=== PATIENT | male | born 1955 | race Caucasian/White ===

== ENCOUNTER 2020-08-05 12:58 | Outpatient (CLI) | payer MEDICARE, OTHER, SELFPAY ==
--- NOTE | 2020-08-05 13:30 | USCV_ITS ---
Tavo Levin Age: 65 Gender: M : 1955 Exam Date: 08/05/2020 13:18 Ordering Phys: Ingrid Maravilla MD ([email or web address]) Technologist: Betty Merida Exam Location: [facility] [place] Indication: SWELLING POSSIBLE DVT PROCEDURES: Venous duplex imaging was performed in only the left lower extremity. The following venous structures were evaluated: common femoral vein, profunda vein, proximal portion of the greater saphenous vein, superficial femoral vein, and the popliteal vein. In addition, the posterior tibial and peroneal trunk were evaluated. FINDINGS: Normal 2-D Doppler and augmentation and compressibility throughout the lower extremity venous structures. Additional imaging through the proximal calf veins also reveals no thrombus. Limited evaluation of the greater saphenous vein is patent with no thrombus.. CONCLUSIONS No evidence of DVT in the above-mentioned identifiable veins. Dr Temitope De Leon MD FACC (Electronically Signed) Final Date: 06 August 2020 09:40 S
== END 2020-08-05 12:59 | disposition home or self-care (01) ==
PROVIDERS: PCP Electrodiagnostic Medicine; Visit Provider Internal Medicine Cardiovascular Disease
DX: I82.409 Acute embolism and thrombosis of unspecified deep veins of unspecified lower extremity (principal); M79.89 Other specified soft tissue disorders
CPT/HCPCS: 93971

== ENCOUNTER → 2022-01-16 13:43 | Outpatient (BNVA) | payer MEDICARE, OTHER, SELFPAY | PROVIDERS: PCP Electrodiagnostic Medicine; Visit Provider Internal Medicine Cardiovascular Disease | DX: R06.02 Shortness of breath (principal); I10 Essential (primary) hypertension; I42.8 Other cardiomyopathies; I83.893 Varicose veins of bilateral lower extremities with other complications; Z87.891 Personal history of nicotine dependence | CPT/HCPCS: 99214 ==

== ENCOUNTER → 2022-07-24 14:00 | Outpatient (BNVA) | payer MEDICARE, OTHER, SELFPAY | PROVIDERS: PCP Electrodiagnostic Medicine; Visit Provider Internal Medicine Cardiovascular Disease | DX: I42.8 Other cardiomyopathies (principal); R06.02 Shortness of breath; R07.9 Chest pain, unspecified; I10 Essential (primary) hypertension; I83.893 Varicose veins of bilateral lower extremities with other complications; Z87.891 Personal history of nicotine dependence | CPT/HCPCS: 99214 ==

== ENCOUNTER 2022-09-25 07:26 | Outpatient (CLI) | payer MEDICARE, MEDICAID, SELFPAY ==
--- NOTE | 2022-09-25 07:44 | CT_ITS ---
WS: [id number] LDCT LUNG CANCER SCREENING TECHNIQUE: Noncontrast CT of the chest with coronal and sagittal reformatted images. CLINICAL INFORMATION: HX OF TOBACCO USE COMPARISON: CT chest 2018 DLP: 72.21 mGy.cm DIvol: Mean CTDIvol: 1.60 (mGy) All CT scans at [facility] use at least one of these dose optimization techniques: automat ed exposure control; mA and/or kV adjustment per patient size (includes targeted exams where dose is matched to clinical indication); or iterative reconstruction. FINDINGS: Chronic calcified granulomas. 3 mm tiny nodule in the RIGHT middle lobe. Tiny noncalcified nodule LEF T upper lobe anteriorly. A few tiny subpleural micronodules bilaterally. Cholelithiasis. Presumed small hepatic cysts some too small to characterize. Small esophageal hiatal hernia. Adrenal glands are normal. Chronic granulomatous disease. Chronic rib fractures bilateral rib s and sternum. Plate and screw fixation RIGHT lateral rib fractures. Mild aortic calcification. Coron opal calcification. No axillary lymphadenopathy. No mediastinal or hilar lymphadenopathy. A few Schmorl's nodes in the thoracic spine. CT/CT lung screening [id number] IMPRESSION: LUNG-RADS: 2-Benign Appearance or Behavior FOLLOW UP: 12 Month: Continue annual screening with LDCT
== END 2022-09-25 07:27 | disposition home or self-care (01) ==
PROVIDERS: PCP Electrodiagnostic Medicine; Visit Provider Physician Assistant
DX: Z12.2 Encounter for screening for malignant neoplasm of respiratory organs (principal); Z87.891 Personal history of nicotine dependence
CPT/HCPCS: 71271

== ENCOUNTER 2022-10-02 09:58 | Outpatient (CLI) | payer MEDICARE, MEDICAID, SELFPAY ==
--- NOTE | 2022-10-02 10:00 | USCV_ITS ---
Tavo Levin Age: 67 Gender: M : 1955 Exam Date: 10/02/2022 10:17 Ordering Phys: Radha River MD ([email or web address]) Technologist: Exam Location: [facility] – [place] Indication: hx of cardio myop and mi BP: 130 / 83 HR: 76 Rhythm: Sinus Technical Quality: Adequate MEASUREMENTS (Male / Female) Normal Values 2D ECHO LV Diastolic Diameter PLAX 5.3 cm 4.2 - 5.9 / 3.9 - 5.3 cm LV Systolic Diameter PLAX 4.4 cm IVS Diastolic Thickness 1.0 cm 0.6 - 1.0 / 0.6 - 0.9 cm IVS Systolic Thickness 1.1 cm LVPW Diastolic Thickness 1.1 cm 0.6 - 1.0 / 0.6 - 0.9 cm LVPW Systolic Thickness 1.5 cm LVOT Diameter 2.1 cm LV Ejection Fraction 2D Teich 37.6 % LV Ejection Fraction MOD 2C 35.0 % LV Ejection Fraction 2C AL 33.8 % LA Diameter 4.5 cm Aorta at Sinotubular Diameter 2.9 cm M-MODE Aortic Annulus Diameter 3.3 cm LA Ao Ratio MM 1.2 MV E Point Septal Separation 1.0 cm DOPPLER AV Peak Velocity 127.0 cm/s LVOT Peak Velocity 71.0 cm/s AV Area Cont Eq vti 1.6 cm squared AV Area Cont Eq pk 1.9 cm squared MV Area PHT 5.0 cm squared Mitral E to A Ratio 0.8 MV E' Velocity 39.0 cm/s Mitral E to MV E' Ratio 8.1 Mitral E to LV E' Lateral Ratio 6.5 Mitral E to LV E' Septal Ratio 10.8 TR Peak Velocity 122.0 cm/s TR Peak Gradient 6.0 mmHg RV Acceleration Time 0.1 s FINDINGS Left Ventricle Normal left ventricular cavity size. Moderately decreased left ventricular systolic function. Left ventricular ejection fraction is estimated at 30 %. There is global hypokinesis more pronounced in septal and apical gonzalez. Abnormal diastolic function. Right Ventricle Normal right ventricular size and systolic function. RVSP could not be calculated due to incomplete tricuspid regurgitation velocity profile. Right Atrium Normal right atrial size. Left Atrium Mildly increased left atrial size. Mitral Valve Mild mitral annular calcification. Structurally normal mitral valve. No mitral valve stenosis. Trace mitral valve regurgitation. Aortic Valve Aortic valve not well visualized. No aortic valve stenosis. No aortic valve regurgitation. Tricuspid Valve Structurally normal tricuspid valve. Pulmonic Valve Pulmonic valve not well visualized. Pericardium No pericardial effusion. Aorta Normal-sized aortic root. IVC Inferior vena cava not visualized. CONCLUSIONS 1. This is a technically difficult study Optison was used per protocol. 2.. Normal left ventricular cavity size. Moderately decreased left ventricular systolic function. Left ventricular ejection fraction is estimated at 30 %. There is global hypokinesis more pronounced in septal and apical gonzalez. Abnormal diastolic function. 3. Normal right ventricular size and systolic function. 4. When compared to study report dated 07/24/2022, differential systolic function seems to have decreased from 45% in 30% now. Radha River MD (Electronically Signed) Final Date: 10 October 2022 17:11 S
[2022-10-02] MEDS: perflutren protein-a microsphr 0.22 mg/mL SDV 3 mL IV (10:52)
== END 2022-10-02 09:59 | disposition home or self-care (01) ==
PROVIDERS: PCP Electrodiagnostic Medicine; Visit Provider Internal Medicine Cardiovascular Disease
DX: R06.02 Shortness of breath (principal); I42.8 Other cardiomyopathies
CPT/HCPCS: C8929; Q9956

== ENCOUNTER 2022-10-02 09:58 | Outpatient (CLI) | payer MEDICARE, MEDICAID, SELFPAY ==
--- NOTE | 2022-10-02 | ECG_ITS ---
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 Interpretive Statements NAME OF STUDY: EXERCISE SESTAMIBI STRESS TEST INDICATION: Chest Pain Baseline blood pressure of 130/77 mm Hg, heart rate 68 beats per minute. EKG showed normal sinus rhythm, normal axis and non specific T wave inversion. ??? The patient exercised for 2 minutes and 49 seconds on a [standard Eriberto protocol]. Patient attained a maximum heart rate of 153 beats per minute( 100 % of the maximum predicted heart rate) with a blood pressure at the peak exercise of 106/79 mm Hg. The EKG at the peak exercise revealed sinus tachycardia with no significant ST-T wave changes. Patient did not have any chest pain or any significant arrhythmis with the exercise.??? During the recovery phase, there were no new changes. ??? Blood pressure at the end of the recovery phase was 153/82 mm Hg with a heart rate of 95 beats per minute. ??? CONCLUSION: 1. Normal EKG response to treadmill exercise. 2. No exercise-induced chest pain or cardiac arrhythmia. 3. Decreased exercise tolerance, attained a maximum of 4.6 METs. 4. Perfusion portion of the study will be reported separately. Electronically Signed On 10-07-2022 9:17:55 QUARTER SUPERVISOR by Radha River M.D. [email or web address]
--- NOTE | 2022-10-02 11:01 | NMCV_ITS ---
NM jus perf SPECT r/s* [id number] Tavo Levin Age: 67 Gender: M : 1955 Exam Date: 10/02/2022 11:01 Ordering Phys: Radha River MD ([email or web address]) Technologist: KAMALJIT Paige Exam Location: [facility] Indications: Chest Pain STRESS TEST Please see separate stress test report in [facility] for full findings IMAGE PROTOCOL Rest/Stress 1 Exercise Day Radiopharmaceutical Dose (mCi) Administration Site Administered by Rest: Tc-99m 10.8 IV Sestamibi Stress:Tc-99m 33.0 IV KAMALJIT Ramos Sestamibi Rest: 02-Oct-2022 60 Discovery 630 Stress: 02-Oct-2022 30 Discovery 630 Radiopharmaceutical was injected at 90 % maximum heart rate. Images obtained in supine and prone position. SPECT RESULTS Technical Quality: Excellent Raw Data Analysis: Adequate Image Corrections: No attenuation or motion correction applied Summed Stress Score: 23 Summed Rest Score: 22 Summed Difference Score: 2 PERFUSION FINDINGS Large sized perfusion abnormality of moderate to severe severity of basal inferior, basal to mid inferoseptal, apical septal, mid to apical anterior, basal to mid anteroseptal, apixcal lateral and apical gonzalez on rest images with subtle reversibility in septal wall. FUNCTIONAL RESULTS (calculated via Gated SPECT) Stress Image LV EF (%): 38 Stress EDV (mL):156 TID: 1.09 Stress ESV (mL):97 FUNCTIONAL FINDINGS: The left ventricle is normal in size. Transient Ischemia Dilatation of 1.1. The left ventricular ejection fraction is moderately reduced with a value of 38%. There is hypokinesis of inferior, septal and apical gonzalez. Increased end diastolic and end systolic volumes. IMPRESSIONS 1. Large sized perfusion abnormality of basal inferior, basal to mid inferoseptal, apical septal, mid to apical anterior, basal to mid anteroseptal, apixcal lateral and apical gonzalez with subtle reversibility in septal wall. 2. This is suggestive of old myocardial infarction in left anterior descending and right coronary artery territory with minimal isaias-infarct ischemia. 3. The left ventricular ejection fraction is moderately reduced with a value of 38%. 4. There is hypokinesis of inferior, septal and apical gonzalez. 5. EKG portion of the study will be reported separately. Radha River MD (Electronically Signed) Final Date: 10 October 2022 08:57 S
[2022-10-02 11:13] VITALS: BMI 28.7
[2022-10-02 12:32] VITALS: BP 153/82; PULSE 74
== END 2022-10-02 09:59 | disposition home or self-care (01) ==
LOC: CDL 09:59
PROVIDERS: PCP Electrodiagnostic Medicine; Visit Provider Internal Medicine Cardiovascular Disease
DX: R07.9 Chest pain, unspecified (principal); R06.02 Shortness of breath; I42.8 Other cardiomyopathies
CPT/HCPCS: 36415; 78452; 93017; 96374; A9500; C8929; Q9956

== ENCOUNTER → 2022-10-18 10:52 | Outpatient (BNVA) | payer MEDICARE, MEDICAID, SELFPAY | PROVIDERS: PCP Electrodiagnostic Medicine; Visit Provider Internal Medicine Cardiovascular Disease | DX: I42.8 Other cardiomyopathies (principal); I10 Essential (primary) hypertension; I83.893 Varicose veins of bilateral lower extremities with other complications; Z87.891 Personal history of nicotine dependence | CPT/HCPCS: 99214 ==

== ENCOUNTER 2022-10-26 11:34 | Outpatient (CLI) | payer MEDICARE, MEDICAID, SELFPAY ==
[2022-10-26 13:33] LABS: Anion Gap 12.4 (5-19); Blood Urea Nitrogen 12 mg/dL (8-23); Calcium 8.7 mg/dL (8.5-10.5); Carbon Dioxide 27 mmol/L (22-29); Chloride 101 mmol/L (98-107); Glomerular Filtration Rate 84.2 mL/min (90-130); Glucose 117 mg/dL (65-115); Magnesium 2.2 mg/dL (1.7-2.3); NT Pro B Type Natriuretic Pept 71 pg/mL (0-125); Osmolality Calculated 283 mOsm/kg (285-295); Potassium 4.4 mmol/L (3.5-5.1); Sodium 136 mmol/L (136-145)
== END 2022-10-26 11:35 | disposition home or self-care (01) ==
LOC: LAB 11:37
PROVIDERS: PCP Electrodiagnostic Medicine; Visit Provider Internal Medicine Cardiovascular Disease
DX: I42.8 Other cardiomyopathies (principal); I10 Essential (primary) hypertension
CPT/HCPCS: 80048; 83735; 83880

== ENCOUNTER → 2023-04-12 10:41 | Outpatient (BNVA) | payer MEDICARE, MEDICAID, SELFPAY | PROVIDERS: PCP Electrodiagnostic Medicine; Visit Provider Internal Medicine Cardiovascular Disease | DX: I42.9 Cardiomyopathy, unspecified (principal); I10 Essential (primary) hypertension; Z87.891 Personal history of nicotine dependence | CPT/HCPCS: 99214 ==

== ENCOUNTER 2023-05-08 09:03 | Outpatient (CLI) | payer MEDICARE, MEDICAID, SELFPAY ==
--- NOTE | 2023-05-08 09:15 | USCV_ITS ---
Tavo Levin Age: 67 Gender: M : 1955 Exam Date: 05/08/2023 09:42 Ordering Phys: Radha River MD ([email or web address]) Technologist: [place] [facility] [place]ication: wall motion BP: 115 / 70 HR: 63 Rhythm: Sinus Technical Quality: Adequate MEASUREMENTS (Male / Female) Normal Values 2D ECHO LV Diastolic Diameter PLAX 4.1 cm 4.2 - 5.9 / 3.9 - 5.3 cm LV Systolic Diameter PLAX 3.1 cm IVS Diastolic Thickness 1.4 cm 0.6 - 1.0 / 0.6 - 0.9 cm IVS Systolic Thickness 1.5 cm LVPW Diastolic Thickness 1.4 cm 0.6 - 1.0 / 0.6 - 0.9 cm LVPW Systolic Thickness 1.3 cm LVOT Diameter 2.0 cm LV Ejection Fraction 2D Teich 38.3 % LV Ejection Fraction MOD 2C 39.2 % LV Ejection Fraction 2C AL 38.9 % LA Diameter 4.1 cm Aorta at Sinotubular Diameter 2.9 cm M-MODE Aortic Annulus Diameter 3.4 cm LA Ao Ratio MM 1.2 MV E Point Septal Separation 1.8 cm FINDINGS Left Ventricle Right Ventricle Right Atrium Left Atrium Mitral Valve Aortic Valve Tricuspid Valve Pulmonic Valve Pericardium Aorta IVC CONCLUSIONS 1. This is a technically difficult study. Optison was used per protocol. 2. Dilated left ventricle. Moderately decreased left ventricular systolic function. Left ventricular ejection fraction estimated at 30%. Severe global hypokinesis. 3. No significant change when compared to study dated 03/09/2022. Radha River MD (Electronically Signed) Final Date: 16 May 2023 13:02 S
[2023-05-08] MEDS: perflutren protein-a microsphr 0.22 mg/mL SDV 3 mL IV (10:17)
== END 2023-05-08 09:04 | disposition home or self-care (01) ==
PROVIDERS: PCP Electrodiagnostic Medicine; Visit Provider Internal Medicine Cardiovascular Disease
DX: R06.02 Shortness of breath (principal); I50.9 Heart failure, unspecified; I42.9 Cardiomyopathy, unspecified
CPT/HCPCS: 99214; C8924; Q9956

== ENCOUNTER → 2023-05-24 15:39 | Outpatient (BNVA) | payer MEDICARE, MEDICAID, SELFPAY | PROVIDERS: PCP Electrodiagnostic Medicine; Visit Provider Internal Medicine Cardiovascular Disease | DX: I42.8 Other cardiomyopathies (principal); I10 Essential (primary) hypertension; I83.893 Varicose veins of bilateral lower extremities with other complications; E78.5 Hyperlipidemia, unspecified; Z87.891 Personal history of nicotine dependence | CPT/HCPCS: 99214 ==

== ENCOUNTER → 2023-10-01 10:59 | Outpatient (BNVA) | payer MEDICARE, MEDICAID, SELFPAY | PROVIDERS: PCP Electrodiagnostic Medicine; Visit Provider Internal Medicine Cardiovascular Disease | DX: I42.8 Other cardiomyopathies (principal); I10 Essential (primary) hypertension; I83.893 Varicose veins of bilateral lower extremities with other complications; E78.5 Hyperlipidemia, unspecified; Z87.891 Personal history of nicotine dependence | CPT/HCPCS: 99214 ==

== ENCOUNTER → 2024-05-07 08:14 | Outpatient (CLI) | payer MEDICARE, MEDICAID, SELFPAY ==
--- NOTE | 2024-05-07 08:29 | USCV_ITS ---
Tavo Levin Age: 68 Gender: M : 1955 Exam Date: 05/07/2024 08:42 Ordering Phys: Ingrid Maravilla MD ([email or web address]) Technologist: CT [place]am [place] [facility] [place]ication: BP: 132 / 82 HR: 70 Rhythm: Sinus Technical Quality: Adequate MEASUREMENTS (Male / Female) Normal Values 2D ECHO LVOT Diameter 2.6 cm LV Ejection Fraction MOD 4C 63.1 % LV Ejection Fraction MOD 2C 64.3 % LV Ejection Fraction 2C AL 64.0 % LA Diameter 2.9 cm RA Systolic Volume 4C AL 50.0 ml RA Systolic Volume 4C MOD 49.5 ml LA Sys Volume AL 54.7 cm cubed LA Sys Volume Index AL 26.2 cm cubed/m squared Aorta at Sinotubular Diameter 2.5 cm IVC Diameter 1.8 cm M-MODE LA Ao Ratio MM 1.4 AV Cusp Separation MM 2.0 cm DOPPLER AV Peak Velocity 160.0 cm/s LVOT Peak Velocity 83.0 cm/s AV Area Cont Eq vti 3.0 cm squared AV Area Cont Eq pk 2.7 cm squared MV Peak Velocity 79.0 cm/s MV Area PHT 2.7 cm squared Mitral E to A Ratio 0.8 TV Peak E Velocity 66.0 cm/s Right Atrial Pressure 3.0 mmHg PV Peak Velocity 88.0 cm/s FINDINGS Left Ventricle Technically limited quality echocardiogram. Grossly LV systolic function is mildly reduced. Grade 1 diastolic dysfunction. Right Ventricle Normal in size and function Right Atrium Normal in size Left Atrium Normal in size Mitral Valve Mild mitral annular calcification. Trace mitral regurgitation. Aortic Valve Structurally normal aortic valve. No significant stenosis or regurgitation. Tricuspid Valve Insufficient TR jet to calculate RVSP Pulmonic Valve Not well-visualized. Pericardium Normal Aorta Normal in size IVC Appears to be normal CONCLUSIONS Technically limited quality echocardiogram because of poor ultrasonic windows.. Grossly LV systolic function is mildly reduced Grade 1 diastolic dysfunction. Trace mitral regurgitation. Accurate comparison with prior studies not possible because of limited visualization. Consider limited echocardiogram with contrast for better EF assessment García Antunez MD (Electronically Signed) Final Date: 22 May 2024 09:06 S
== END | disposition home or self-care (01) ==
PROVIDERS: PCP Electrodiagnostic Medicine; Visit Provider Internal Medicine Cardiovascular Disease
DX: I34.0 Nonrheumatic mitral (valve) insufficiency (principal); I42.9 Cardiomyopathy, unspecified
CPT/HCPCS: 93306

== ENCOUNTER 2024-07-01 12:57 | Outpatient (CLI) | payer MEDICARE, MEDICAID, SELFPAY ==
--- NOTE | 2024-07-01 13:00 | USCV_ITS ---
Tavo Levin Age: 69 Gender: M : 1955 Exam Date: 07/01/2024 13:11 Ordering Phys: García Antunez M.D ([email or web address]) Technologist: Exam Location: [facility] [place] Indication: EF assessment BP: 125 / 75 HR: Rhythm: Sinus Technical Quality: Adequate MEASUREMENTS (Male / Female) Normal Values 2D ECHO LV Ejection Fraction MOD 4C 48.6 % LV Ejection Fraction MOD 2C 54.0 % LV Ejection Fraction 2C AL 54.9 % FINDINGS Left Ventricle Right Ventricle Right Atrium Left Atrium Mitral Valve Aortic Valve Tricuspid Valve Pulmonic Valve Pericardium Aorta IVC CONCLUSIONS Technically limited quality echocardiogram because of poor ultrasonic windows. LV systolic function is severely reduced with EF of 30-35%. Grossly severe global hypokinesis. García Antunez MD (Electronically Signed) Final Date: 02 July 2024 10:08 S
== END 2024-07-01 12:58 | disposition home or self-care (01) ==
LOC: RAD 12:57
PROVIDERS: PCP Electrodiagnostic Medicine; Visit Provider Internal Medicine
DX: I50.20 Unspecified systolic (congestive) heart failure (principal); R07.9 Chest pain, unspecified; I51.89 Other ill-defined heart diseases
CPT/HCPCS: C8924

== ENCOUNTER → 2024-07-03 13:07 | Outpatient (BNVA) | payer MEDICARE, MEDICAID, SELFPAY | PROVIDERS: PCP Electrodiagnostic Medicine; Visit Provider Internal Medicine Cardiovascular Disease | DX: I42.8 Other cardiomyopathies (principal); I10 Essential (primary) hypertension; I83.893 Varicose veins of bilateral lower extremities with other complications | CPT/HCPCS: 99213 ==

== ENCOUNTER 2024-07-23 08:38 | Outpatient (CLI) | payer MEDICARE, MEDICAID, SELFPAY ==
--- NOTE | 2024-07-23 08:41 | CT_ITS ---
WS: [id number] LDCT LUNG CANCER SCREENING HISTORY: HX OF TOBACCO USE TECHNIQUE: Axial imaging performed from the apices to 1 cm below the costophrenic angles. Coronal and sagittal reformats are submitted with axial MIP series. All CT scans at [facility] use at least one of these dose optimization techniques: automated exposure control; mA and/or kV adjustment per patient size (includes targeted exams where dose is matched to clinical indication); or iterativ e reconstruction. DLP: 81.80 mGy.cm DIvol: Mean CTDIvol: 2.00 (mGy) COMPARISON: 09/25/2022 Diagnostic quality: Satisfactory Lungs: Mild pulmonary hyperexpansion. Mild interstitial thickening. There are a few scattered microno dules. No mass or increasing nodule size. Bilateral lower lobe bronchiectasis, RIGHT greater than LEF T. Granulomatous. Mild pleural thickening RIGHT thorax appears to be posttraumatic. Heart: Normal size heart with no pericardial effusion.. Other findings: Mild atherosclerosis aorta. No mediastinal or hilar adenopathy. Prior median sternoto my. Plate and screw fixation several RIGHT rib fractures. Stable low-attenuation masses within the li jyoti thought to be hepatic cysts. Dense calcification in the gallbladder fossa. Gallbladder is small a nd contracted. Calcification may be due to cholelithiasis or gallbladder wall calcification. No bile duct dilatation. Normal adrenal glands. CT/CT lung screening [id number] IMPRESSION: LUNG-RADS: 2-Benign Appearance or Behavior FOLLOW UP: 12 Month: Continue annual screening with LDCT OTHER FINDINGS (S MODIFIER): None.
== END 2024-07-23 08:39 | disposition home or self-care (01) ==
LOC: RAD 08:39
PROVIDERS: PCP Electrodiagnostic Medicine; Visit Provider Electrodiagnostic Medicine
DX: Z12.2 Encounter for screening for malignant neoplasm of respiratory organs (principal); Z87.891 Personal history of nicotine dependence; J47.9 Bronchiectasis, uncomplicated; J84.10 Pulmonary fibrosis, unspecified; Q44.6 Cystic disease of liver; K80.20 Calculus of gallbladder without cholecystitis without obstruction
CPT/HCPCS: 71271

== ENCOUNTER → 2025-02-05 12:56 | Outpatient (BNVA) | payer MEDICARE, MEDICAID, SELFPAY | PROVIDERS: PCP Electrodiagnostic Medicine; Visit Provider Internal Medicine Cardiovascular Disease | DX: I42.8 Other cardiomyopathies (principal); I10 Essential (primary) hypertension; E78.5 Hyperlipidemia, unspecified; Z87.891 Personal history of nicotine dependence; R93.1 Abnormal findings on diagnostic imaging of heart and coronary circulation; I42.9 Cardiomyopathy, unspecified | CPT/HCPCS: 99214 ==

== ENCOUNTER 2025-03-16 09:54 | Outpatient (CLI) | payer MEDICARE, MEDICAID, SELFPAY ==
--- NOTE | 2025-03-16 10:00 | USCV_ITS ---
Tavo Levin Age: 69 Gender: M : 1955 Exam Date: 03/16/2025 10:25 Ordering Phys: Ingrid Maravilla MD ([email or web address]) Technologist: Exam Location: [facility] [place] Indication: ef BP: 120 / 60 HR: Rhythm: Sinus Technical Quality: MEASUREMENTS (Male / Female) Normal Values 2D ECHO LV Diastolic Diameter PLAX 5.0 cm 4.2 - 5.9 / 3.9 - 5.3 cm IVS Diastolic Thickness 1.3 cm 0.6 - 1.0 / 0.6 - 0.9 cm IVS Systolic Thickness 1.3 cm LVPW Diastolic Thickness 1.4 cm 0.6 - 1.0 / 0.6 - 0.9 cm LVPW Systolic Thickness 1.7 cm LVOT Diameter 2.0 cm LV Ejection Fraction 2D Teich 29.8 % LV Ejection Fraction MOD 4C 46.0 % LV Ejection Fraction MOD 2C 37.3 % LV Ejection Fraction 2C AL 38.9 % LA Diameter 3.5 cm Aorta at Sinotubular Diameter 3.2 cm M-MODE LA Ao Ratio MM 1.2 AV Cusp Separation MM 1.7 cm FINDINGS Left Ventricle Mildly increased left ventricular cavity size. Moderately decreased left ventricular systolic function. Left ventricular ejection fraction is estimated at 40 %. There is anterior , septal and apical wall akinesis suggestive of possible coronary artery disease. Right Ventricle Right Atrium Left Atrium Mitral Valve Aortic Valve Tricuspid Valve Pulmonic Valve Pericardium Aorta IVC CONCLUSIONS Limited echo Mildly increased left ventricular cavity size. Moderately decreased left ventricular systolic function. Left ventricular ejection fraction is estimated at 40 %. There is anterior , septal and apical wall akinesis suggestive of possible coronary artery disease. There is no pericardial effusion. Ingrid Maravilla MD (Electronically Signed) Final Date: 21 Mar 2025 19:52 S
[2025-03-16] MEDS: perflutren protein-a microsphr 0.22 mg/mL SDV 3 mL IV (10:38)
== END 2025-03-16 09:55 | disposition home or self-care (01) ==
LOC: RAD 09:56
PROVIDERS: PCP Electrodiagnostic Medicine; Visit Provider Internal Medicine Cardiovascular Disease
DX: R93.1 Abnormal findings on diagnostic imaging of heart and coronary circulation (principal); I42.9 Cardiomyopathy, unspecified; I51.7 Cardiomegaly; I51.89 Other ill-defined heart diseases
CPT/HCPCS: C8924

== ENCOUNTER → 2025-07-30 14:48 | Outpatient (BNVA) | payer MEDICARE, MEDICAID, SELFPAY | PROVIDERS: PCP Electrodiagnostic Medicine; Visit Provider Internal Medicine Cardiovascular Disease | DX: I10 Essential (primary) hypertension (principal); I42.9 Cardiomyopathy, unspecified; E78.5 Hyperlipidemia, unspecified; I25.10 Atherosclerotic heart disease of native coronary artery without angina pectoris; Z87.891 Personal history of nicotine dependence | CPT/HCPCS: 99214 ==